=== PATIENT | male | born 1995 | race Caucasian/White ===

== ENCOUNTER 2020-07-07 15:33 | Emergency (ER) | payer OTHER ==
[2020-07-07 15:40] VITALS: BP 117/77; PULSE 75; TEMP 98.5; BMI 26.4
[2020-07-07] MEDS ORDERED: ACETAMINOPHEN 500 MG TABLET (FP) PO ONE (17:09)
[2020-07-07] MEDS ORDERED: ACETAMINOPHEN 500 MG TABLET (FP) ONE (17:11)
[2020-07-07 17:59] LABS: URINE APPEARANCE CLEAR; URINE BILIRUBIN NEGATIVE (NEGATIVE); URINE COLOR YELLOW; URINE GLUCOSE (UA) NEGATIVE (NEGATIVE); URINE KETONE NEGATIVE (NEGATIVE); URINE LEUK ESTERASE NEGATIVE (NEGATIVE); URINE NITRITE NEGATIVE (NEGATIVE); URINE PROTEIN NEGATIVE (NEGATIVE)
[2020-07-07 18:10] LABS: BASO % 0.6 % (0-2.0); EOS % 1.1 % (0-4.5); HEMATOCRIT 45.5 % (35.4-49); HEMOGLOBIN 15.6 GM/dL (11.7-16.9); LYMPH % 22.9 % (8-40); MCH 29.7 pg (25.7-33.7); MCHC 34.2 g/dl (32.0-35.9); MEAN CELL VOLUME 86.8 fl (80-96); MEAN PLT VOLUME 8.9 fl (7.5-11.1); MONO % 8.8 % (3.8-10.2); NEUT % 66.6 % (42.8-82.8); PLATELET COUNT 222 K/MM3 (134-434); RBC 5.25 M/mm3 (4.00-5.60); RDW 14.2 % (11.9-15.9)
[2020-07-07 18:12] LABS: CALCIUM 8.6 mg/dL (8.5-10.1)
[2020-07-07 18:13] LABS: BLOOD UREA NITROGEN 8.6 mg/dL (7-18)
[2020-07-07 18:16] LABS: CREATININE 0.9 mg/dL (0.55-1.3)
[2020-07-07 18:17] LABS: BILIRUBIN,TOTAL 0.6 mg/dL (0.2-1)
[2020-07-07 18:18] LABS: TOT PROT 7.1 g/dl (6.4-8.2)
== END 2020-07-07 20:25 | disposition home or self-care (01) ==
LOC: JER 15:33
DX: R10.13 Epigastric pain (principal)
CPT/HCPCS: 36415; 76705-TC; 80053; 81003; 83690; 85025; 99284-25